=== PATIENT | male | born 1960 | race Two or more races ===

== ENCOUNTER 2016-10-17 10:13 | Inpatient (IN) | payer OTHER ==
[2016-10-17 11:23] VITALS: BMI 27.4
--- NOTE | 2016-10-17 12:32 | HP ---
CIWA Score - CIWA Score Nausea/Vomitin-No Nausea/No Vomiting Muscle Tremors: 4-Moderate,w/Arms Extend Anxiety: 4-Mod. Anxious/Guarded Agitation: 4-Moderately Restless Paroxysmal Sweats: 3 Orientation: 0-Oriented Tacttile Disturbances: 0-None Auditory Disturbances: 0-None Visual Disturbances: 0-None Headache: 1-Very Mild CIWA-Ar Total Score: 16 Admission ROS BHS - HPI Chief Complaint: I am here for detox and need help. Allergies/Adverse Reactions: Allergies Allergy/AdvReac Type Severity Reaction Status Date / Time penicillin G Allergy Severe Rash Verified 10/17/16 12:09 History of Present Illness: pt is a 56yr old male with a history of alcohol and cocaine dependence seeking detox for treatment. pt also understand [place]. Exam Limitations: No Limitations - Ebola screening Have you traveled outside of the country in the last 21 days: No Have you had contact with anyone from an Ebola affected area: No Have you been sick,other than usual withdrawal symptoms: No Do you have a fever: No - Review of Systems Constitutional: Chills, Diaphoresis, Loss of Appetite, Night Sweats, Changes in sleep, Unintentional Wgt. Loss EENT: reports: No Symptoms Reported Respiratory: reports: No Symptoms reported Cardiac: reports: No Symptoms Reported GI: reports: Constipated, Poor Appetite, Poor Fluid Intake : reports: Burning Musculoskeletal: reports: No Symptoms Reported Integumentary: reports: Flushing, Sweating Neuro: reports: Tingling, Tremors Endocrine: reports: Excessive Sweating, Flushing, Intolerance to Cold, Intolerance to Heat Hematology: reports: No Symptoms Reported Psychiatric: reports: Judgement Intact, Mood/Affect Appropiate, Orientated x3, Agitated, Anxious Other Systems: Reviewed and Negative Patient History - Patient Medical History Hx Anemia: No Hx Asthma: No Hx Chronic Obstructive Pulmonary Disease (COPD): No Hx Cancer: No Hx Cardiac Disorders: No Hx Congestive Heart Failure: No Hx Hypertension: No Hx Hypercholesterolemia: No Hx Pacemaker: No HX Cerebrovascular Accident: No Hx Seizures: No Hx Dementia: No Hx Diabetes: No Hx Gastrointestinal Disorders: No Hx Liver Disease: No Hx Genitourinary Disorders: No Hx Sexually Transmitted Disorders: No Hx Renal Disease (ESRD): No Hx Thyroid Disease: No Hx Human Immunodeficiency Virus (HIV): No Hx Hepatitis C: No (negative) Hx Depression: No Hx Suicide Attempt: No (denies any S/H today. ) Hx Bipolar Disorder: No Hx Schizophrenia: Yes - Patient Surgical History Past Surgical History: No Hx Neurologic Surgery: No Hx Cataract Extraction: No Hx Cardiac Surgery: No Hx Lung Surgery: No Hx Breast Surgery: No Hx Breast Biopsy: No Hx Abdominal Surgery: No Hx Appendectomy: No Hx Cholecystectomy: No Hx Genitourinary Surgery: No Hx Section: No Hx Orthopedic Surgery: No Anesthesia Reaction: No - PPD History Previous Implant?: Yes PPD to be Administered?: No - Reproductive History Patient is a Female of Child Bearing Age (11 -55 yrs old): No - Smoking Cessation Smoking history: Current every day smoker Have you smoked in the past 12 months: Yes Aproximately how many cigarettes per day: 3 Cigars Per Day: 0 Hx Chewing Tobacco Use: No Initiated information on smoking cessation: Yes 'Breaking Loose' booklet given: 10/17/16 - Substance & Tx. History Hx Alcohol Use: Yes Hx Substance Use: Yes Substance Use Type: Alcohol, Cocaine Hx Substance Use Treatment: Yes - Substances Abused Cocaine Route: Inhalation Frequency: 1-2 times per week Amount used: $40 Age of first use: 29 Date of Last Use: 10/16/16 Alcohol-beer/vodka Route: Oral Frequency: Daily Amount used: 2-6 pks./5-6 pts. Age of first use: 12 Date of Last Use: 10/17/16 Family Disease History - Family Disease History Family Disease History: Diabetes: Mother Admission Physical Exam S - Vital Signs Vital Signs: Vital Signs - 24 hr 10/17/16 11:20 Temperature 98.4 F Pulse Rate 76 Respiratory 20 Rate Blood Pressure 122/68 - Physical General Appearance: Yes: Appropriately Dressed, Moderate Distress, Tremorous, Irritable, Sweating, Anxious HEENTM: Yes: Hearing grossly Normal, Normal Voice, Rhinorrhea Respiratory: Yes: Lungs Clear, Normal Breath Sounds, No Respiratory Distress Neck: Yes: No masses,lesions,Nodules Breast: Yes: Within Normal Limits Cardiology: Yes: Regular Rhythm, Regular Rate, S1, S2 Abdominal: Yes: Normal Bowel Sounds, Non Tender, Soft Genitourinary: Yes: Within Normal Limits Back: Yes: Normal Inspection Musculoskeletal: Yes: full range of Motion, Back pain Extremities: Yes: Normal Capillary Refill, Normal Inspection, Non-Tender, Tremors Neurological: Yes: Fully Oriented, Alert, Normal Response Integumentary: Yes: Normal Color, Diaphoresis Lymphatic: Yes: Within Normal Limits - Diagnostic (1) Schizophrenia Current Visit: Yes Status: Acute (2) Alcohol dependence with uncomplicated withdrawal Current Visit: Yes Status: Chronic (3) Nicotine dependence Current Visit: Yes Status: Chronic (4) Cocaine dependence Current Visit: Yes Status: Chronic Cleared for Admission [facility] - Detox or Rehab [facility] Level of Care: Medically Managed Detox Regimen/Protocol: Librium [facility] Breath Alcohol Content Breath Alcohol Content: 0 Urine Drug Screen - Results Drug Screen Negative: No Urine Drug Screen Results: CAROL-Cocaine
[2016-10-17] MEDS ORDERED: MAG HYDROX/AL HYDROX/SIMETH 30 ML UNIT-DOSE CUP PO PRN (14:43)
[2016-10-17] MEDS ORDERED: MENTHOL/PHENOL 1 EACH UD MM PRN (14:43)
[2016-10-17] MEDS ORDERED: MAGNESIUM CITRATE 300 ML BOTTLE PO PRN (14:43)
[2016-10-17] MEDS ORDERED: P-EPHED 60MG/TRIPROLIDI 2.5MG TABLET PO PRN (14:43)
[2016-10-17] MEDS ORDERED: chlordiazePOXIDE HCL 25 MG CAPSULE PO PRN (14:43)
[2016-10-17] MEDS ORDERED: hydrOXYzine PAMOATE 50 MG CAPSULE (FP) PO PRN (14:43)
[2016-10-17] MEDS ORDERED: NICOTINE POLACRILEX 4 MG GUM BUC PRN (14:43)
[2016-10-17] MEDS ORDERED: IBUPROFEN 400 MG TABLET (FP) PO PRN (14:43)
[2016-10-17] MEDS ORDERED: LOPERAMIDE HCL 2 MG CAPSULE PO PRN (14:43)
[2016-10-17] MEDS ORDERED: ACETAMINOPHEN 325 MG TABLET (FP) PO PRN (14:43)
[2016-10-17] MEDS ORDERED: guaiFENesin/D-METHORPHAN HB 10 ML UNIT-DOSE CUPS PO PRN (14:43)
[2016-10-17] MEDS ORDERED: MAGNESIUM HYDROX 2400MG/30ML ORAL SUSPENSION 30 ML CUP PO PRN (14:43)
[2016-10-17] MEDS ORDERED: chlordiazePOXIDE HCL 25 MG CAPSULE PO ONE (15:05)
[2016-10-17] MEDS: chlordiazePOXIDE HCL 25 MG CAPSULE PO SCH ×2 (17:24→22:08)
[2016-10-17] MEDS: THIAMINE HCL 100 MG TABLET (FP) PO SCH (22:08)
[2016-10-17] MEDS: diphenhydrAMINE HCL 50 MG CAPSULE PO PRN (22:09)
--- NOTE | 2016-10-18 00:28 | EKG ---
Test Reason : Blood Pressure : / mmHG Vent. Rate : 068 BPM Atrial Rate : 068 BPM P-R Int : 138 ms QRS Dur : 076 ms QT Int : 426 ms P-R-T Axes : 009 099 048 degrees QTc Int : 452 ms NORMAL SINUS RHYTHM BORDERLINE ECG NO PREVIOUS ECGS AVAILABLE Confirmed by ZBIGNIEW WESTBROOK MD ([id number]) on 10/18/2016 12:27:47 AM Referred By: Confirmed By:ZBIGNIEW WESTBROOK MD
[2016-10-18] MEDS: chlordiazePOXIDE HCL 25 MG CAPSULE PO SCH ×4 (06:01→22:07)
--- NOTE | 2016-10-18 09:01 | PN ---
S CIWA - CIWA Score Nausea/Vomitin Muscle Tremors: 4-Moderate,w/Arms Extend Anxiety: 4-Mod. Anxious/Guarded Agitation: 3 Paroxysmal Sweats: 3 Orientation: 0-Oriented Tacttile Disturbances: 1-Very Mild Itch/Numbness Auditory Disturbances: 0-None Visual Disturbances: 0-None Headache: 0-None Present CIWA-Ar Total Score: 17 BHS Progress Note (SOAP) Subjective: NAUSEA,SWEATING,ANXIETY,TREMORS,INTERRUPTED SLEEP,RESTLESS.C/O SEVERE DYSPEPSIA. Objective: 10/18/16 09:00 Vital Signs - 8 hr 10/18/16 06:32 Temperature 98.5 F Pulse Rate 77 Respiratory 18 Rate Blood Pressure 134/72 Assessment: 10/18/16 09:01 WITHDRAWAL SX. Plan: CONTINUE DETOX
[2016-10-18] MEDS: RANITIDINE HCL 150 MG TABLET (FP) PO SCH ×2 (09:48→22:07)
[2016-10-18] MEDS: PRENATAL VITAMINS W/ FOLIC ACID TABLET (FP) PO SCH (10:09)
[2016-10-18] MEDS: NICOTINE 21 MG/24 HOURS TOPICAL PATCH TD SCH (10:09)
[2016-10-18 10:18] LABS: MCH 28.5 pg (25.7-33.7); MCHC 32.3 g/dl (32.0-35.9); MEAN CELL VOLUME 88.2 fl (80-96); MEAN PLT VOLUME 11.5 fl (7.5-11.1); PLATELET COUNT 160 K/MM3 (134-434); RDW 14.6 % (11.9-15.9); WHITE BLOOD COUNT 6.7 K/mm3 (4.0-10.0)
[2016-10-18 10:44] LABS: ALBUMIN 4.4 g/dl (3.4-5.0); ALK PHOS 79 U/L (45-117); ANION GAP 8 (8-16); BILIRUBIN,TOTAL 1.1 mg/dL (0.2-1.0); CALCIUM 9.3 mg/dL (8.5-10.1); CO2 32 mmol/L (21-32); GLUCOSE,RANDOM 95 mg/dL (74-106); SGOT/AST 29 U/L (15-37); SGPT/ALT 29 U/L (12-78); TOT PROT 8.2 g/dl (6.4-8.2)
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
[2016-10-18 12:52] LABS: HIV 1 & 2 AB NEGATIVE; HIV 1 AGp24 NEGATIVE
[2016-10-18 15:59] LABS: URINE APPEARANCE CLEAR; URINE BILIRUBIN NEGATIVE (NEGATIVE); URINE BLOOD NEGATIVE (NEGATIVE); URINE COLOR YELLOW; URINE GLUCOSE (UA) NEGATIVE (NEGATIVE); URINE KETONE NEGATIVE (NEGATIVE); URINE LEUK ESTERASE NEGATIVE (NEGATIVE); URINE NITRITE NEGATIVE (NEGATIVE); URINE PROTEIN NEGATIVE (NEGATIVE); URINE UROBILINOGEN 2.0 E.U/dl E.U./dl (0.2-1.0)
[2016-10-18] MEDS: QUEtiapine FUMARATE 200 MG TABLET PO SCH (22:07)
[2016-10-18] MEDS: THIAMINE HCL 100 MG TABLET (FP) PO SCH (22:07)
[2016-10-18] MEDS: diphenhydrAMINE HCL 50 MG CAPSULE PO PRN (22:09)
[2016-10-19] MEDS: chlordiazePOXIDE HCL 25 MG CAPSULE PO SCH ×2 (05:51→10:07)
[2016-10-19] MEDS: PRENATAL VITAMINS W/ FOLIC ACID TABLET (FP) PO SCH (10:07)
[2016-10-19] MEDS: RANITIDINE HCL 150 MG TABLET (FP) PO SCH ×2 (10:07→22:06)
[2016-10-19] MEDS: NICOTINE 21 MG/24 HOURS TOPICAL PATCH TD SCH (10:07)
[2016-10-19] MEDS: CITALOPRAM HYDROBROMIDE 20 MG TABLET (FP) PO SCH (10:08)
[2016-10-19] MEDS: chlordiazePOXIDE 5 MG CAPSULE PO SCH ×2 (17:30→22:06)
--- NOTE | 2016-10-19 17:30 | PN ---
S CIWA - CIWA Score Nausea/Vomitin-No Nausea/No Vomiting Muscle Tremors: 3 Anxiety: 4-Mod. Anxious/Guarded Agitation: 3 Paroxysmal Sweats: 3 Orientation: 0-Oriented Tacttile Disturbances: 1-Very Mild Itch/Numbness Auditory Disturbances: 0-None Visual Disturbances: 0-None Headache: 0-None Present CIWA-Ar Total Score: 14 BHS Progress Note (SOAP) Subjective: ANXIETY,TREMORS,SWEATING,INTERRUPTED SLEEP,RESTLESS. Objective: 10/19/16 17:29 Vital Signs - 8 hr 10/19/16 10/19/16 10/19/16 09:31 13:13 17:23 Temperature 95.1 F L 96.1 F L 96.0 F L Pulse Rate 81 82 85 Respiratory 18 18 18 Rate Blood Pressure 105/69 117/65 101/65 Laboratory Tests 10/17/16 10/18/16 10/18/16 12:30 06:00 06:00 WBC 6.7 D RBC 4.86 D Hgb 13.8 D Hct 42.8 D MCV 88.2 MCHC 32.3 RDW 14.6 Plt Count 160 MPV 11.5 H Sodium 138 Potassium 4.2 Chloride 98 Carbon Dioxide 32 Anion Gap 8 BUN 15 Creatinine 1.0 D Creat Clearance w eGFR > 60 Random Glucose 95 D Calcium 9.3 Total Bilirubin 1.1 H D AST 29 D ALT 29 D Alkaline Phosphatase 79 D Total Protein 8.2 D Albumin 4.4 D Urine Color Urine Appearance Urine pH Ur Specific [place] Urine Protein Urine Glucose (UA) Urine Ketones Urine Blood Urine Nitrite Urine Bilirubin Urine Urobilinogen Ur Leukocyte Esterase RPR Titer HIV 1&2 Antibody Screen Negative HIV P24 Antigen Negative 10/18/16 10/18/16 06:00 11:10 WBC RBC Hgb Hct MCV MCHC RDW Plt Count MPV Sodium Potassium Chloride Carbon Dioxide Anion Gap BUN Creatinine Creat Clearance w eGFR Random Glucose Calcium Total Bilirubin AST ALT Alkaline Phosphatase Total Protein Albumin Urine Color Yellow Urine Appearance Clear Urine pH 6.0 Ur Specific [place] 1.024 Urine Protein Negative Urine Glucose (UA) Negative Urine Ketones Negative Urine Blood Negative Urine Nitrite Negative Urine Bilirubin Negative Urine Urobilinogen 2.0 e.u/dl Ur Leukocyte Esterase Negative RPR Titer Nonreactive HIV 1&2 Antibody Screen HIV P24 Antigen LABS NOTED Assessment: 10/19/16 17:29 WITHDRAWAL SX. Plan: CONTINUE DETOX
[2016-10-19] MEDS: QUEtiapine FUMARATE 200 MG TABLET PO SCH (22:06)
[2016-10-19] MEDS: THIAMINE HCL 100 MG TABLET (FP) PO SCH (22:06)
[2016-10-20] MEDS: chlordiazePOXIDE 5 MG CAPSULE PO SCH ×2 (05:37→10:12)
[2016-10-20] MEDS: RANITIDINE HCL 150 MG TABLET (FP) PO SCH ×2 (10:12→22:07)
[2016-10-20] MEDS: PRENATAL VITAMINS W/ FOLIC ACID TABLET (FP) PO SCH (10:12)
[2016-10-20] MEDS: CITALOPRAM HYDROBROMIDE 20 MG TABLET (FP) PO SCH (10:12)
[2016-10-20] MEDS: NICOTINE 21 MG/24 HOURS TOPICAL PATCH TD SCH (10:13)
--- NOTE | 2016-10-20 11:44 | PN ---
BHS Progress Note (SOAP) Subjective: SWEATING,INTERRUPTED SLEEP,RESTLESS. Objective: 10/20/16 11:43 Vital Signs - 8 hr 10/20/16 10/20/16 06:55 10:04 Temperature 97.8 F 95.8 F L Pulse Rate 76 84 Respiratory 18 16 Rate Blood Pressure 135/65 121/65 Laboratory Last Values WBC 6.7 K/mm3 (4.0-10.0) D 10/18/16 06:00 RBC 4.86 M/mm3 (4.00-5.60) D 10/18/16 06:00 Hgb 13.8 GM/dL (11.7-16.9) D 10/18/16 06:00 Hct 42.8 % (35.4-49) D 10/18/16 06:00 MCV 88.2 fl (80-96) 10/18/16 06:00 MCHC 32.3 g/dl (32.0-35.9) 10/18/16 06:00 RDW 14.6 % (11.9-15.9) 10/18/16 06:00 Plt Count 160 K/MM3 (134-434) 10/18/16 06:00 MPV 11.5 fl (7.5-11.1) H 10/18/16 06:00 Sodium 138 mmol/L (136-145) 10/18/16 06:00 Potassium 4.2 mmol/L (3.5-5.1) 10/18/16 06:00 Chloride 98 mmol/L (98-107) 10/18/16 06:00 Carbon Dioxide 32 mmol/L (21-32) 10/18/16 06:00 Anion Gap 8 (8-16) 10/18/16 06:00 BUN 15 mg/dL (7-18) 10/18/16 06:00 Creatinine 1.0 mg/dL (0.7-1.3) D 10/18/16 06:00 Creat Clearance w eGFR > 60 (>60) 10/18/16 06:00 Random Glucose 95 mg/dL (74-106) D 10/18/16 06:00 Calcium 9.3 mg/dL (8.5-10.1) 10/18/16 06:00 Total Bilirubin 1.1 mg/dL (0.2-1.0) H D 10/18/16 06:00 AST 29 U/L (15-37) D 10/18/16 06:00 ALT 29 U/L (12-78) D 10/18/16 06:00 Alkaline Phosphatase 79 U/L (45-117) D 10/18/16 06:00 Total Protein 8.2 g/dl (6.4-8.2) D 10/18/16 06:00 Albumin 4.4 g/dl (3.4-5.0) D 10/18/16 06:00 Urine Color Yellow 10/18/16 11:10 Urine Appearance Clear 10/18/16 11:10 Urine pH 6.0 (5.0-8.0) 10/18/16 11:10 Ur Specific [place] 1.024 (1.001-1.035) 10/18/16 11:10 Urine Protein Negative (NEGATIVE) 10/18/16 11:10 Urine Glucose (UA) Negative (NEGATIVE) 10/18/16 11:10 Urine Ketones Negative (NEGATIVE) 10/18/16 11:10 Urine Blood Negative (NEGATIVE) 10/18/16 11:10 Urine Nitrite Negative (NEGATIVE) 10/18/16 11:10 Urine Bilirubin Negative (NEGATIVE) 10/18/16 11:10 Urine Urobilinogen 2.0 e.u/dl E.U./dl (0.2-1.0) 10/18/16 11:10 Ur Leukocyte Esterase Negative (NEGATIVE) 10/18/16 11:10 RPR Titer Nonreactive (NONREACTIVE) 10/18/16 06:00 HIV 1&2 Antibody Screen Negative 10/17/16 12:30 HIV P24 Antigen Negative 10/17/16 12:30 LABS NOTED Assessment: 10/20/16 11:43 WITHDRAWAL SX. Plan: CONTINUE DETOX
[2016-10-20] MEDS: chlordiazePOXIDE HCL 10 MG CAPSULE PO SCH ×2 (17:53→22:07)
[2016-10-20] MEDS: THIAMINE HCL 100 MG TABLET (FP) PO SCH (22:07)
[2016-10-20] MEDS: QUEtiapine FUMARATE 200 MG TABLET PO SCH (22:07)
[2016-10-21] MEDS: chlordiazePOXIDE HCL 10 MG CAPSULE PO SCH (05:47)
[2016-10-21 06:21] VITALS: BP 109/63; PULSE 75; TEMP 97.5
--- NOTE | 2016-10-21 11:46 | DS ---
[facility] Detox Discharge Summary Admission Date: 10/17/16 Discharge Date: 10/21/16 - History Present History: Alcohol Dependence, Cocaine Dependence Pertinent Past History: schizophrenia - Physical Exam Results Vital Signs: Vital Signs Temperature 97.5 F L 10/21/16 06:21 Pulse Rate 75 10/21/16 06:21 Respiratory Rate 16 10/21/16 06:21 Blood Pressure 109/63 10/21/16 06:21 O2 Sat by Pulse Oximetry (%) Pertinent Admission Physical Exam Findings: Withdrawal sx. Laboratory Tests 10/17/16 10/18/16 10/18/16 12:30 06:00 06:00 WBC 6.7 D RBC 4.86 D Hgb 13.8 D Hct 42.8 D MCV 88.2 MCHC 32.3 RDW 14.6 Plt Count 160 MPV 11.5 H Sodium 138 Potassium 4.2 Chloride 98 Carbon Dioxide 32 Anion Gap 8 BUN 15 Creatinine 1.0 D Creat Clearance w eGFR > 60 Random Glucose 95 D Calcium 9.3 Total Bilirubin 1.1 H D AST 29 D ALT 29 D Alkaline Phosphatase 79 D Total Protein 8.2 D Albumin 4.4 D Urine Color Urine Appearance Urine pH Ur Specific [place] Urine Protein Urine Glucose (UA) Urine Ketones Urine Blood Urine Nitrite Urine Bilirubin Urine Urobilinogen Ur Leukocyte Esterase RPR Titer HIV 1&2 Antibody Screen Negative HIV P24 Antigen Negative 10/18/16 10/18/16 06:00 11:10 WBC RBC Hgb Hct MCV MCHC RDW Plt Count MPV Sodium Potassium Chloride Carbon Dioxide Anion Gap BUN Creatinine Creat Clearance w eGFR Random Glucose Calcium Total Bilirubin AST ALT Alkaline Phosphatase Total Protein Albumin Urine Color Yellow Urine Appearance Clear Urine pH 6.0 Ur Specific [place] 1.024 Urine Protein Negative Urine Glucose (UA) Negative Urine Ketones Negative Urine Blood Negative Urine Nitrite Negative Urine Bilirubin Negative Urine Urobilinogen 2.0 e.u/dl Ur Leukocyte Esterase Negative RPR Titer Nonreactive HIV 1&2 Antibody Screen HIV P24 Antigen labs noted - Treatment Hospital Course: Detox Protocol Followed, Detoxed Safely, Responded well, Discharged Condition Good, Rehab Referral Accepted - Medication Discharge Medications: Ambulatory Orders Zolpidem Tartrate [Ambien] 10 mg PO HS 03/15/12 Citalopram Hydrobromide [Celexa -] 20 mg PO DAILY 10/17/16 Quetiapine Fumarate [Seroquel -] 400 mg PO BID 10/17/16 Citalopram Hydrobromide [Celexa -] 20 mg PO DAILY #30 tablet 10/19/16 Quetiapine Fumarate [Seroquel] 300 mg PO HS #30 tablet 10/19/16 - Diagnosis (1) Alcohol dependence with uncomplicated withdrawal Status: Acute (2) Cocaine dependence Status: Acute (3) Nicotine dependence Status: Acute Qualifiers: Nicotine product type: cigarettes Substance use status: uncomplicated Qualified Code(s): F17.210 - Nicotine dependence, cigarettes, uncomplicated (4) Schizophrenia Status: Chronic - AMA Did Patient Leave Against Medical Advice: No
== END 2016-10-21 08:35 | disposition home or self-care (01) | DRG 897 ==
LOC: YASAS 10:13 → Y3N 13:06
PROVIDERS: ADMIT Internal Medicine; ATTEND Internal Medicine
PROC: HZ2ZZZZ Detoxification Services for Substance Abuse Treatment (ICD-10-PCS; principal; 2016-10-21)
DX: F10.230 Alcohol dependence with withdrawal, uncomplicated (principal); F14.20 Cocaine dependence, uncomplicated; F20.0 Paranoid schizophrenia; F17.210 Nicotine dependence, cigarettes, uncomplicated; Z59.0 Homelessness
CPT/HCPCS: 36415; 71010-TC; 80053; 81003; 85027; 86593; 87389; 93005; 93010

== ENCOUNTER 2018-01-14 10:01 | Inpatient (IN) | payer OTHER ==
[2018-01-14 10:46] VITALS: BMI 29.9
--- NOTE | 2018-01-14 13:26 | HP ---
CIWA Score - CIWA Score Nausea/Vomitin-No Nausea/No Vomiting Muscle Tremors: 3 Anxiety: 3 Agitation: 3 Paroxysmal Sweats: 1-Minimal Palms Moist Orientation: 0-Oriented Tacttile Disturbances: 2-Mild Itch/Numbness/Burn Auditory Disturbances: 0-None Visual Disturbances: 0-None Headache: 0-None Present CIWA-Ar Total Score: 12 Admission ROS BHS - HPI Chief Complaint: I want detox Allergies/Adverse Reactions: Allergies Allergy/AdvReac Type Severity Reaction Status Date / Time penicillin G Allergy Severe Rash Verified 01/14/18 10:41 History of Present Illness: 57 yr old male requesting alcohol detox. Pt was last here in Oct last year. Was at [facility] yesterday for Alcohol intoxication. Denies any medical hx; Hx of Schizophrenia Endorses prior SI by attempting to jump over a bridge but denies current SI/HI Exam Limitations: Language Barrier (Speaks a little [place]) - Ebola screening Have you traveled outside of the country in the last 21 days: No (N) Have you had contact with anyone from an Ebola affected area: No Have you been sick,other than usual withdrawal symptoms: No Do you have a fever: No - Review of Systems Constitutional: Loss of Appetite EENT: reports: Other (lips dry) Respiratory: reports: No Symptoms reported Cardiac: reports: No Symptoms Reported GI: reports: No Symptoms Reported, Poor Fluid Intake : reports: No Symptoms Reported Musculoskeletal: reports: No Symptoms Reported Integumentary: reports: No Symptoms Reported Neuro: reports: Headache (slight headache) Endocrine: reports: No Symptoms Reported Hematology: reports: No Symptoms Reported Psychiatric: reports: Judgement Intact, other Other Systems: Reviewed and Negative Patient History - Patient Medical History Hx Anemia: No Hx Asthma: No Hx Chronic Obstructive Pulmonary Disease (COPD): No Hx Cancer: No Hx Cardiac Disorders: No Hx Congestive Heart Failure: No Hx Hypertension: No Hx Hypercholesterolemia: No Hx Pacemaker: No HX Cerebrovascular Accident: No Hx Seizures: No Hx Dementia: No Hx Diabetes: No Hx Gastrointestinal Disorders: No Hx Liver Disease: No Hx Genitourinary Disorders: No Hx Sexually Transmitted Disorders: No Hx Renal Disease (ESRD): No Hx Thyroid Disease: No Hx Human Immunodeficiency Virus (HIV): No (Negative, last tested 3 years ago) Hx Hepatitis C: No (negative) Hx Depression: Yes Hx Suicide Attempt: Yes (3 years ago, denies any S/H today. ) Hx Bipolar Disorder: No Hx Schizophrenia: Yes (Not on meds) - Patient Surgical History Past Surgical History: No Hx Neurologic Surgery: No Hx Cataract Extraction: No Hx Cardiac Surgery: No Hx Lung Surgery: No Hx Breast Surgery: No Hx Breast Biopsy: No Hx Abdominal Surgery: No Hx Appendectomy: No Hx Cholecystectomy: No Hx Genitourinary Surgery: No Hx Section: No Hx Orthopedic Surgery: No Anesthesia Reaction: No - PPD History Previous Implant?: Yes Documented Results: Positive w/proof (chest x ray 10/2016) PPD to be Administered?: No - Reproductive History Patient is a Female of Child Bearing Age (11 -55 yrs old): No - Smoking Cessation Smoking history: Current every day smoker Have you smoked in the past 12 months: Yes Aproximately how many cigarettes per day: 3 Cigars Per Day: 0 Hx Chewing Tobacco Use: No Initiated information on smoking cessation: Yes 'Breaking Loose' booklet given: 01/14/18 - Substance & Tx. History Hx Alcohol Use: Yes Hx Substance Use: Yes Substance Use Type: Cocaine Hx Substance Use Treatment: Yes - Substances Abused Alcohol Route: Oral Frequency: Daily Amount used: beer- 2 six pack, liquor - 1 pint Age of first use: 23 Date of Last Use: 01/13/18 Cocaine Route: Inhalation Frequency: Daily Amount used: 20 bags Age of first use: 23 Date of Last Use: 01/13/18 Family Disease History - Family Disease History Family Disease History: Diabetes: Mother (HTN), Other: Father (Prostate hx) Admission Physical Exam S - Vital Signs Vital Signs: Vital Signs - 24 hr 01/14/18 01/14/18 10:19 10:44 Temperature 97.3 F L 97.3 F L Pulse Rate 83 83 Respiratory 20 20 Rate Blood Pressure 119/69 119/69 - Physical General Appearance: Yes: Mild Distress HEENTM: Yes: Within Normal Limits Respiratory: Yes: Lungs Clear, No Respiratory Distress Neck: Yes: No masses,lesions,Nodules, Trachea in good position Breast: Yes: Breast Exam Deferred Cardiology: Yes: Regular Rate Abdominal: Yes: Normal Bowel Sounds, Non Tender Genitourinary: Yes: Within Normal Limits Back: Yes: Normal Inspection Musculoskeletal: Yes: full range of Motion, Gait Steady Extremities: Yes: Normal Capillary Refill, Normal Inspection, Normal Range of Motion Neurological: Yes: Fully Oriented, Alert, Motor Strength 5/5 Integumentary: Yes: Normal Color - Diagnostic (1) Alcohol dependence with uncomplicated withdrawal Current Visit: Yes Status: Acute (2) Cocaine dependence Current Visit: Yes Status: Chronic (3) Nicotine dependence Current Visit: Yes Status: Chronic Qualifiers: Nicotine product type: cigarettes Substance use status: uncomplicated Qualified Code(s): F17.210 - Nicotine dependence, cigarettes, uncomplicated (4) Schizophrenia Current Visit: No Status: Chronic (5) Dehydration Current Visit: Yes Status: Acute Cleared for Admission [facility] - Detox or Rehab [facility] Level of Care: Medically Managed Detox Regimen/Protocol: Librium [facility] Breath Alcohol Content Breath Alcohol Content: 0 Urine Drug Screen - Results Drug Screen Negative: No Urine Drug Screen Results: CAROL-Cocaine, BZO-Benzodiazepines
[2018-01-14] MEDS ORDERED: MENTHOL/PHENOL 1 EACH UD MM PRN (13:53)
[2018-01-14] MEDS ORDERED: ACETAMINOPHEN 325 MG TABLET (FP) PO PRN (13:53)
[2018-01-14] MEDS ORDERED: hydrOXYzine PAMOATE 50 MG CAPSULE (FP) PO PRN (13:53)
[2018-01-14] MEDS ORDERED: IBUPROFEN 400 MG TABLET (FP) PO PRN (13:53)
[2018-01-14] MEDS ORDERED: P-EPHED 60MG/TRIPROLIDI 2.5MG TABLET PO PRN (13:53)
[2018-01-14] MEDS ORDERED: guaiFENesin/D-METHORPHAN HB 10 ML UNIT-DOSE CUPS PO PRN (13:53)
[2018-01-14] MEDS ORDERED: MAG HYDROX/AL HYDROX/SIMETH 30 ML UNIT-DOSE CUP PO PRN (13:53)
[2018-01-14] MEDS ORDERED: NICOTINE POLACRILEX 2 MG GUM BC PRN (13:53)
[2018-01-14] MEDS ORDERED: MAGNESIUM HYDROX 2400MG/30ML ORAL SUSPENSION 30 ML CUP PO PRN (13:53)
[2018-01-14] MEDS ORDERED: LOPERAMIDE HCL 2 MG CAPSULE PO PRN (13:53)
[2018-01-14] MEDS ORDERED: MAGNESIUM CITRATE 300 ML BOTTLE PO PRN (13:53)
[2018-01-14] MEDS ORDERED: chlordiazePOXIDE HCL 25 MG CAPSULE PO PRN (13:53)
[2018-01-14] MEDS: NICOTINE 14 MG/24 HOURS TOPICAL PATCH TD SCH (14:39)
--- NOTE | 2018-01-14 16:12 | EKG ---
Test Reason : Blood Pressure : / mmHG Vent. Rate : 068 BPM Atrial Rate : 068 BPM P-R Int : 152 ms QRS Dur : 076 ms QT Int : 438 ms P-R-T Axes : 011 077 033 degrees QTc Int : 465 ms NORMAL SINUS RHYTHM NORMAL ECG WHEN COMPARED WITH ECG OF 17-OCT-2016 14:51, NO SIGNIFICANT CHANGE WAS FOUND Confirmed by MD Chapman Daniel ([id number]) on 01/14/2018 4:11:55 PM Referred By: Confirmed By:Guy Chapman MD
[2018-01-14] MEDS: chlordiazePOXIDE HCL 25 MG CAPSULE PO SCH ×2 (17:24→22:29)
[2018-01-14 21:10] LABS: URINE APPEARANCE SLCLOUDY; URINE BILIRUBIN NEGATIVE (<2.0 mg/dL); URINE COLOR AMBER; URINE GLUCOSE (UA) NEGATIVE (NEGATIVE); URINE KETONE 1+ (NEGATIVE); URINE LEUK ESTERASE TRACE (NEGATIVE); URINE NITRITE NEGATIVE (NEGATIVE)
[2018-01-14 21:11] LABS: URINE PROTEIN 1+ (NEGATIVE)
[2018-01-14 21:17] LABS: EPI CELLS RARE /HPF (FEW); URINE BACTERIA RARE /hpf (NONE SEEN); URINE HYALINE CAST 3 /lpf; URINE MUCUS MANY
[2018-01-14] MEDS ORDERED: MELATONIN 5 MG TABLETS PO PRN (22:00)
[2018-01-14] MEDS: THIAMINE HCL 100 MG TABLET (FP) PO SCH (22:29)
[2018-01-15] MEDS: chlordiazePOXIDE HCL 25 MG CAPSULE PO SCH ×4 (05:19→22:08)
[2018-01-15 09:41] LABS: HEMOGLOBIN 12.1 GM/dL (11.7-16.9); MCH 29.6 pg (25.7-33.7); MCHC 33.7 g/dl (32.0-35.9); MEAN CELL VOLUME 87.9 fl (80-96); MEAN PLT VOLUME 10.7 fl (7.5-11.1); PLATELET COUNT 173 K/MM3 (134-434); RDW 14.8 % (11.9-15.9); WHITE BLOOD COUNT 4.4 K/mm3 (4.0-10.0)
[2018-01-15 09:53] LABS: CHLORIDE 102 mmol/L (98-107); POTASSIUM 3.8 mmol/L (3.5-5.1); SODIUM 138 mmol/L (136-145)
[2018-01-15 10:04] LABS: ALBUMIN 3.5 g/dl (3.4-5.0); ALK PHOS 99 U/L (45-117); ANION GAP 3 (8-16); BILIRUBIN,TOTAL 1.2 mg/dL (0.2-1.0); BLOOD UREA NITROGEN 11 mg/dL (7-18); CALCIUM 8.4 mg/dL (8.5-10.1); CO2 33 mmol/L (21-32); CREATININE 0.9 mg/dL (0.7-1.3); GLUCOSE,RANDOM 95 mg/dL (74-106); SGOT/AST 38 U/L (15-37); SGPT/ALT 49 U/L (12-78)
[2018-01-15] MEDS: PRENATAL VITAMINS W/ FOLIC ACID TABLET (FP) PO SCH (10:16)
[2018-01-15] MEDS: NICOTINE 14 MG/24 HOURS TOPICAL PATCH TD SCH (10:17)
--- NOTE | 2018-01-15 15:23 | PN ---
S CIWA - CIWA Score Nausea/Vomitin Muscle Tremors: 3 Anxiety: 2 Agitation: 2 Paroxysmal Sweats: 2 Orientation: 0-Oriented Tacttile Disturbances: 0-None Auditory Disturbances: 0-None Visual Disturbances: 0-None Headache: 0-None Present CIWA-Ar Total Score: 12 S Progress Note (SOAP) Subjective: sleep disturbance shakes sweats Objective: 01/15/18 15:18 A & O x 3 Vital Signs Temperature 98.9 F 01/15/18 13:18 Pulse Rate 75 01/15/18 13:18 Respiratory Rate 18 01/15/18 13:18 Blood Pressure 96/54 01/15/18 13:18 O2 Sat by Pulse Oximetry (%) Laboratory Last Values WBC 4.4 K/mm3 (4.0-10.0) D 01/15/18 07:00 RBC 4.10 M/mm3 (4.00-5.60) 01/15/18 07:00 Hgb 12.1 GM/dL (11.7-16.9) D 01/15/18 07:00 Hct 36.0 % (35.4-49) D 01/15/18 07:00 MCV 87.9 fl (80-96) 01/15/18 07:00 MCH 29.6 pg (25.7-33.7) 01/15/18 07:00 MCHC 33.7 g/dl (32.0-35.9) 01/15/18 07:00 RDW 14.8 % (11.9-15.9) 01/15/18 07:00 Plt Count 173 K/MM3 (134-434) 01/15/18 07:00 MPV 10.7 fl (7.5-11.1) 01/15/18 07:00 Sodium 138 mmol/L (136-145) 01/15/18 07:00 Potassium 3.8 mmol/L (3.5-5.1) 01/15/18 07:00 Chloride 102 mmol/L (98-107) 01/15/18 07:00 Carbon Dioxide 33 mmol/L (21-32) H 01/15/18 07:00 Anion Gap 3 (8-16) L 01/15/18 07:00 BUN 11 mg/dL (7-18) D 01/15/18 07:00 Creatinine 0.9 mg/dL (0.7-1.3) 01/15/18 07:00 Creat Clearance w eGFR > 60 (>60) 01/15/18 07:00 Random Glucose 95 mg/dL (74-106) 01/15/18 07:00 Calcium 8.4 mg/dL (8.5-10.1) L 01/15/18 07:00 Total Bilirubin 1.2 mg/dL (0.2-1.0) H 01/15/18 07:00 AST 38 U/L (15-37) H D 01/15/18 07:00 ALT 49 U/L (12-78) D 01/15/18 07:00 Alkaline Phosphatase 99 U/L (45-117) D 01/15/18 07:00 Total Protein 7.0 g/dl (6.4-8.2) 01/15/18 07:00 Albumin 3.5 g/dl (3.4-5.0) D 01/15/18 07:00 Urine Color Lary 01/14/18 18:38 Urine Appearance Slcloudy 01/14/18 18:38 Urine pH 6.0 (5.0-8.0) 01/14/18 18:38 Ur Specific [place] 1.026 (1.001-1.035) 01/14/18 18:38 Urine Protein 1+ (NEGATIVE) H 01/14/18 18:38 Urine Glucose (UA) Negative (NEGATIVE) 01/14/18 18:38 Urine Ketones 1+ (NEGATIVE) H 01/14/18 18:38 Urine Blood Negative (NEGATIVE) 01/14/18 18:38 Urine Nitrite Negative (NEGATIVE) 01/14/18 18:38 Urine Bilirubin Negative (<2.0 mg/dL) 01/14/18 18:38 Urine Urobilinogen 2.0 mg/dL (0.2-1.0) 01/14/18 18:38 Ur Leukocyte Esterase Trace (NEGATIVE) 01/14/18 18:38 Urine WBC (Auto) 7 /hpf (3-5) 01/14/18 18:38 Urine RBC (Auto) 1 /hpf (0-3) 01/14/18 18:38 Ur Epithelial Cells Rare /HPF (FEW) 01/14/18 18:38 Urine Bacteria Rare /hpf (NONE SEEN) 01/14/18 18:38 Hyaline Casts 3 /lpf 01/14/18 18:38 Urine Mucus Many 01/14/18 18:38 RPR Titer Nonreactive (NONREACTIVE) 01/15/18 07:00 HIV 1&2 Antibody Screen Negative 01/15/18 07:00 HIV P24 Antigen Negative 01/15/18 07:00 Labs noted, Lary urine, cloudy Assessment: 01/15/18 15:23 Withdrawal assessment Plan: Continue detox Increase hydration Repeat UA
--- NOTE | 2018-01-15 17:26 | CONSULT ---
[facility] Psychiatric Consult - Data Date of interview: 01/15/18 Admission source: [facility] Identifying data: Another admission to [facility] for this 57 y/o male seeking detox treatment on for alcohol and cocaine dependence.Patient is single,a father of two,homeless,unemployed and supported on SSD. Substance Abuse History: Confirmed by patient in this session.Details in current [facility] report : Smoking history: Current every day smoker. Have you smoked in the past 12 months: Yes. Aproximately how many cigarettes per day: 3. Cigars Per Day: 0. Hx Chewing Tobacco Use: No. Initiated information on smoking cessation: Yes. 'Breaking Loose' booklet given: 01/14/18. - Substance & Tx. History. Hx Alcohol Use: Yes. Hx Substance Use: Yes. Substance Use Type : Cocaine. Hx Substance Use Treatment: Yes. - Substances Abused. Alcohol. Route: Oral. Frequency: Daily. Amount used: beer- 2 six pack, liquor - 1 pint. Age of first use: 23. Date of Last Use: 01/13/18. Cocaine. Route: Inhalation. Frequency: Daily. Amount used: 20 bags. Age of first use: 23. Date of Last Use: 01/13/18 Medical History: No reported medical problems. Psychiatric History: History of 5-7 psychiatric hospitalizations ([facility] and [facility]).Diagnosed with Schizophrenia.Patient does not recall the name of his outpatient program.Known to [facility].Mr Nicolas states that he is currently on a combination of celexa 20 mg /day + seroquel 400 mg am/hs + ambien 10 mg/hs + klonopin (dose unknown).Last medication intake : not known.Mr Jara denies history of suicide attempts. Physical/Sexual Abuse/Trauma History: Patient denies. Additional Comment: Urine Drug Screen Results: CAROL-Cocaine, BZO- Benzodiazepines.Noted. Mental Status Exam - Mental Status Exam Alert and Oriented to: Time, Place, Person Cognitive Function: Grossly Intact Patient Appearance: Unkempt, Disheveled Mood: Nervous, Withdrawn Affect: Mood Congruent Patient Behavior: Fatigued, Appropriate, Cooperative Speech Pattern: Clear (in bulgarian) Voice Loudness: Normal Thought Process: Intact, Goal Oriented Thought Disorder: Not Present Hallucinations: Denies Suicidal Ideation: Denies Homicidal Ideation: Denies Insight/Judgement: Poor Sleep: Poorly, Difficulty falling asleep Appetite: Good Muscle strength/Tone: Normal Gait/Station: Normal Psychiatric Findings - Problem List ([place] 1, 2,3) (1) Alcohol dependence with uncomplicated withdrawal Current Visit: Yes Status: Acute (2) Cocaine dependence Current Visit: Yes Status: Acute (3) Nicotine dependence Current Visit: Yes Status: Acute Qualifiers: Nicotine product type: cigarettes Substance use status: uncomplicated Qualified Code(s): F17.210 - Nicotine dependence, cigarettes, uncomplicated (4) Schizophrenia Current Visit: Yes Status: Chronic (5) Insomnia Current Visit: Yes Status: Acute - Initial Treatment Plan Initial Treatment Plan: Psychoeducation.Sleep hygiene.Detoxification in progress.Medications : seroquel 200 mg po hs + celexa 10 mg po daily.Ambien withdrawn.Side effects/benefits of these drugs are discused with the patient.Mr Nicolas agrees to this careplan.Observation.
[2018-01-15] MEDS: THIAMINE HCL 100 MG TABLET (FP) PO SCH (22:08)
[2018-01-15] MEDS: QUEtiapine FUMARATE 200 MG TABLET PO SCH (22:08)
[2018-01-16] MEDS: chlordiazePOXIDE HCL 25 MG CAPSULE PO SCH ×2 (05:34→10:34)
[2018-01-16 09:49] LABS: URINE APPEARANCE SLCLOUDY; URINE BILIRUBIN NEGATIVE (<2.0 mg/dL); URINE COLOR YELLOW; URINE GLUCOSE (UA) NEGATIVE (NEGATIVE); URINE KETONE NEGATIVE (NEGATIVE); URINE LEUK ESTERASE NEGATIVE (NEGATIVE); URINE NITRITE NEGATIVE (NEGATIVE); URINE PROTEIN NEGATIVE (NEGATIVE)
[2018-01-16] MEDS: PRENATAL VITAMINS W/ FOLIC ACID TABLET (FP) PO SCH (10:34)
[2018-01-16] MEDS: NICOTINE 14 MG/24 HOURS TOPICAL PATCH TD SCH (10:35)
[2018-01-16] MEDS: ESCITALOPRAM OXALATE 10 MG TABLET (FP) PO SCH (10:35)
--- NOTE | 2018-01-16 12:39 | PN ---
S CIWA - CIWA Score Nausea/Vomitin-No Nausea/No Vomiting Muscle Tremors: 3 Anxiety: 5 Agitation: 4-Moderately Restless Paroxysmal Sweats: 3 Orientation: 1-Uncertain about Date Tacttile Disturbances: 0-None Auditory Disturbances: 0-None Visual Disturbances: 0-None Headache: 2-Mild CIWA-Ar Total Score: 18 BHS Progress Note (SOAP) Subjective: Sweating, Anxious, H/A, Chills, Tremors. Objective: PATIENT A & O X 2 (UNCERTAIN ABOUT CURRENT DAY / DATE). PATIENT OBSERVED AMBULATING ON UNIT. NO ACUTE DISTRESS. 01/16/18 12:37 Vital Signs Temperature 98.1 F 01/16/18 10:43 Pulse Rate 88 01/16/18 10:43 Respiratory Rate 16 01/16/18 10:43 Blood Pressure 100/57 01/16/18 10:43 O2 Sat by Pulse Oximetry (%) Laboratory Tests 01/14/18 01/15/18 01/15/18 18:38 07:00 07:00 WBC 4.4 D RBC 4.10 Hgb 12.1 D Hct 36.0 D MCV 87.9 MCH 29.6 MCHC 33.7 RDW 14.8 Plt Count 173 MPV 10.7 Sodium 138 Potassium 3.8 Chloride 102 Carbon Dioxide 33 H Anion Gap 3 L BUN 11 D Creatinine 0.9 Creat Clearance w eGFR > 60 Random Glucose 95 Calcium 8.4 L Total Bilirubin 1.2 H AST 38 H D ALT 49 D Alkaline Phosphatase 99 D Total Protein 7.0 Albumin 3.5 D Urine Color Lary Urine Appearance Slcloudy Urine pH 6.0 Ur Specific [place] 1.026 Urine Protein 1+ H Urine Glucose (UA) Negative Urine Ketones 1+ H Urine Blood Negative Urine Nitrite Negative Urine Bilirubin Negative Urine Urobilinogen 2.0 Ur Leukocyte Esterase Trace Urine WBC (Auto) 7 Urine RBC (Auto) 1 Ur Epithelial Cells Rare Urine Bacteria Rare Hyaline Casts 3 Urine Mucus Many RPR Titer HIV 1&2 Antibody Screen HIV P24 Antigen 01/15/18 01/15/18 01/16/18 07:00 07:00 07:00 WBC RBC Hgb Hct MCV MCH MCHC RDW Plt Count MPV Sodium Potassium Chloride Carbon Dioxide Anion Gap BUN Creatinine Creat Clearance w eGFR Random Glucose Calcium Total Bilirubin AST ALT Alkaline Phosphatase Total Protein Albumin Urine Color Yellow Urine Appearance Slcloudy Urine pH 6.0 Ur Specific [place] 1.020 Urine Protein Negative Urine Glucose (UA) Negative Urine Ketones Negative Urine Blood Negative Urine Nitrite Negative Urine Bilirubin Negative Urine Urobilinogen 2.0 Ur Leukocyte Esterase Negative Urine WBC (Auto) Urine RBC (Auto) Ur Epithelial Cells Urine Bacteria Hyaline Casts Urine Mucus RPR Titer Nonreactive HIV 1&2 Antibody Screen Negative HIV P24 Antigen Negative LABS NOTED. RESULTS OF REPEAT UA NOTED. 01/16/18 12:38 Assessment: 01/16/18 12:37 WITHDRAWAL SYMPTOMS. Plan: CONTINUE DETOX. INCREASE DAILY PO FLUID INTAKE.
[2018-01-16] MEDS: chlordiazePOXIDE 5 MG CAPSULE PO SCH ×2 (17:06→22:28)
[2018-01-16] MEDS: QUEtiapine FUMARATE 200 MG TABLET PO SCH (22:28)
[2018-01-16] MEDS: THIAMINE HCL 100 MG TABLET (FP) PO SCH (22:28)
[2018-01-17] MEDS: chlordiazePOXIDE 5 MG CAPSULE PO SCH ×3 (05:24→13:00)
[2018-01-17] MEDS: ESCITALOPRAM OXALATE 10 MG TABLET (FP) PO SCH ×2 (10:50→13:00)
[2018-01-17] MEDS: NICOTINE 14 MG/24 HOURS TOPICAL PATCH TD SCH ×2 (10:51→13:01)
[2018-01-17] MEDS: PRENATAL VITAMINS W/ FOLIC ACID TABLET (FP) PO SCH ×2 (10:51→13:01)
--- NOTE | 2018-01-17 15:46 | PN ---
BHS Progress Note (SOAP) Subjective: Fatigue, Anxious. Objective: PATIENT A & O X 3, OBSERVED AMBULATING ON UNIT. NO ACUTE DISTRESS. 01/17/18 15:45 Vital Signs Temperature 97.8 F 01/17/18 14:47 Pulse Rate 77 01/17/18 14:47 Respiratory Rate 18 01/17/18 14:47 Blood Pressure 103/56 01/17/18 14:47 O2 Sat by Pulse Oximetry (%) Laboratory Tests 01/14/18 01/15/18 01/15/18 18:38 07:00 07:00 WBC 4.4 D RBC 4.10 Hgb 12.1 D Hct 36.0 D MCV 87.9 MCH 29.6 MCHC 33.7 RDW 14.8 Plt Count 173 MPV 10.7 Sodium 138 Potassium 3.8 Chloride 102 Carbon Dioxide 33 H Anion Gap 3 L BUN 11 D Creatinine 0.9 Creat Clearance w eGFR > 60 Random Glucose 95 Calcium 8.4 L Total Bilirubin 1.2 H AST 38 H D ALT 49 D Alkaline Phosphatase 99 D Total Protein 7.0 Albumin 3.5 D Urine Color Lary Urine Appearance Slcloudy Urine pH 6.0 Ur Specific [place] 1.026 Urine Protein 1+ H Urine Glucose (UA) Negative Urine Ketones 1+ H Urine Blood Negative Urine Nitrite Negative Urine Bilirubin Negative Urine Urobilinogen 2.0 Ur Leukocyte Esterase Trace Urine WBC (Auto) 7 Urine RBC (Auto) 1 Ur Epithelial Cells Rare Urine Bacteria Rare Hyaline Casts 3 Urine Mucus Many RPR Titer HIV 1&2 Antibody Screen HIV P24 Antigen 01/15/18 01/15/18 01/16/18 07:00 07:00 07:00 WBC RBC Hgb Hct MCV MCH MCHC RDW Plt Count MPV Sodium Potassium Chloride Carbon Dioxide Anion Gap BUN Creatinine Creat Clearance w eGFR Random Glucose Calcium Total Bilirubin AST ALT Alkaline Phosphatase Total Protein Albumin Urine Color Yellow Urine Appearance Slcloudy Urine pH 6.0 Ur Specific [place] 1.020 Urine Protein Negative Urine Glucose (UA) Negative Urine Ketones Negative Urine Blood Negative Urine Nitrite Negative Urine Bilirubin Negative Urine Urobilinogen 2.0 Ur Leukocyte Esterase Negative Urine WBC (Auto) Urine RBC (Auto) Ur Epithelial Cells Urine Bacteria Hyaline Casts Urine Mucus RPR Titer Nonreactive HIV 1&2 Antibody Screen Negative HIV P24 Antigen Negative LABS NOTED. Assessment: 01/17/18 15:45 WITHDRAWAL SYMPTOMS. Plan: CONTINUE DETOX. PATIENT SCHEDULED FOR D/C TOMORROW.
[2018-01-17] MEDS: chlordiazePOXIDE HCL 10 MG CAPSULE PO SCH ×2 (17:42→22:47)
[2018-01-17 22:00] VITALS: BP 102/68; PULSE 79; TEMP 95.9
[2018-01-17] MEDS: THIAMINE HCL 100 MG TABLET (FP) PO SCH (22:47)
[2018-01-17] MEDS: QUEtiapine FUMARATE 200 MG TABLET PO SCH (22:47)
[2018-01-18] MEDS: chlordiazePOXIDE HCL 10 MG CAPSULE PO SCH (06:46)
--- NOTE | 2018-01-18 15:41 | PN ---
BHS Progress Note (SOAP) Subjective: Patient denies current Detox symptoms and reports that he feels well overall. Objective: PATIENT A & O X 3, OBSERVED AMBULATING ON UNIT. NO ACUTE DISTRESS. 01/18/18 15:37 Vital Signs Temperature 95.9 F L 01/17/18 21:59 Pulse Rate 79 01/17/18 21:59 Respiratory Rate 18 01/18/18 03:30 Blood Pressure 102/68 01/17/18 21:59 O2 Sat by Pulse Oximetry (%) Laboratory Tests 01/14/18 01/15/18 01/15/18 18:38 07:00 07:00 WBC 4.4 D RBC 4.10 Hgb 12.1 D Hct 36.0 D MCV 87.9 MCH 29.6 MCHC 33.7 RDW 14.8 Plt Count 173 MPV 10.7 Sodium 138 Potassium 3.8 Chloride 102 Carbon Dioxide 33 H Anion Gap 3 L BUN 11 D Creatinine 0.9 Creat Clearance w eGFR > 60 Random Glucose 95 Calcium 8.4 L Total Bilirubin 1.2 H AST 38 H D ALT 49 D Alkaline Phosphatase 99 D Total Protein 7.0 Albumin 3.5 D Urine Color Lary Urine Appearance Slcloudy Urine pH 6.0 Ur Specific [place] 1.026 Urine Protein 1+ H Urine Glucose (UA) Negative Urine Ketones 1+ H Urine Blood Negative Urine Nitrite Negative Urine Bilirubin Negative Urine Urobilinogen 2.0 Ur Leukocyte Esterase Trace Urine WBC (Auto) 7 Urine RBC (Auto) 1 Ur Epithelial Cells Rare Urine Bacteria Rare Hyaline Casts 3 Urine Mucus Many RPR Titer HIV 1&2 Antibody Screen HIV P24 Antigen 01/15/18 01/15/18 01/16/18 07:00 07:00 07:00 WBC RBC Hgb Hct MCV MCH MCHC RDW Plt Count MPV Sodium Potassium Chloride Carbon Dioxide Anion Gap BUN Creatinine Creat Clearance w eGFR Random Glucose Calcium Total Bilirubin AST ALT Alkaline Phosphatase Total Protein Albumin Urine Color Yellow Urine Appearance Slcloudy Urine pH 6.0 Ur Specific [place] 1.020 Urine Protein Negative Urine Glucose (UA) Negative Urine Ketones Negative Urine Blood Negative Urine Nitrite Negative Urine Bilirubin Negative Urine Urobilinogen 2.0 Ur Leukocyte Esterase Negative Urine WBC (Auto) Urine RBC (Auto) Ur Epithelial Cells Urine Bacteria Hyaline Casts Urine Mucus RPR Titer Nonreactive HIV 1&2 Antibody Screen Negative HIV P24 Antigen Negative LABS NOTED. Assessment: 01/18/18 15:39 COMPLETION OF DETOX REGIMEN. 01/18/18 15:40 Plan: PATIENT SCHEDULED FOR DISCHARGE FROM DETOX UNIT TODAY.
--- NOTE | 2018-01-18 15:49 | DS ---
[facility] Detox Discharge Summary Admission Date: 01/14/18 Discharge Date: 01/18/18 - History Present History: Alcohol Dependence, Cocaine Dependence Additional Comments: PATIENT GOING TO [facility] ([place], [place] FOR AFTERCARE. PATIENT WAS DISCHARGED FROM DETOX UNIT IN STABLE MEDICAL CONDITION. Pertinent Past History: Depression, Schizophrenia, Dehydration, Insomnia, Nicotine Dependence. - Physical Exam Results Vital Signs: Vital Signs Temperature 95.9 F L 01/17/18 21:59 Pulse Rate 79 01/17/18 21:59 Respiratory Rate 01/18/18 03:30 Blood Pressure 102/68 01/17/18 21:59 O2 Sat by Pulse Oximetry (%) Pertinent Admission Physical Exam Findings: WITHDRAWAL SYMPTOMS. Laboratory Tests 01/14/18 01/15/18 01/15/18 18:38 07:00 07:00 WBC 4.4 D RBC 4.10 Hgb 12.1 D Hct 36.0 D MCV 87.9 MCH 29.6 MCHC 33.7 RDW 14.8 Plt Count 173 MPV 10.7 Sodium 138 Potassium 3.8 Chloride 102 Carbon Dioxide 33 H Anion Gap 3 L BUN 11 D Creatinine 0.9 Creat Clearance w eGFR > 60 Random Glucose 95 Calcium 8.4 L Total Bilirubin 1.2 H AST 38 H D ALT 49 D Alkaline Phosphatase 99 D Total Protein 7.0 Albumin 3.5 D Urine Color [place] Urine Appearance Slcloudy Urine pH 6.0 Ur Specific [place] 1.026 Urine Protein 1+ H Urine Glucose (UA) Negative Urine Ketones 1+ H Urine Blood Negative Urine Nitrite Negative Urine Bilirubin Negative Urine Urobilinogen 2.0 Ur Leukocyte Esterase Trace Urine WBC (Auto) 7 Urine RBC (Auto) 1 Ur Epithelial Cells Rare Urine Bacteria Rare Hyaline Casts 3 Urine Mucus Many RPR Titer HIV 1&2 Antibody Screen HIV P24 Antigen 01/15/18 01/15/18 01/16/18 07:00 07:00 07:00 WBC RBC Hgb Hct MCV MCH MCHC RDW Plt Count MPV Sodium Potassium Chloride Carbon Dioxide Anion Gap BUN Creatinine Creat Clearance w eGFR Random Glucose Calcium Total Bilirubin AST ALT Alkaline Phosphatase Total Protein Albumin Urine Color Yellow Urine Appearance Slcloudy Urine pH 6.0 Ur Specific [place] 1.020 Urine Protein Negative Urine Glucose (UA) Negative Urine Ketones Negative Urine Blood Negative Urine Nitrite Negative Urine Bilirubin Negative Urine Urobilinogen 2.0 Ur Leukocyte Esterase Negative Urine WBC (Auto) Urine RBC (Auto) Ur Epithelial Cells Urine Bacteria Hyaline Casts Urine Mucus RPR Titer Nonreactive HIV 1&2 Antibody Screen Negative HIV P24 Antigen Negative LABS NOTED. - Treatment Hospital Course: Detox Protocol Followed, Detoxed Safely, Responded well, Discharged Condition Good, Rehab Referral Accepted Patient has Accepted a Rehab Referral to: [facility] ([place], [place] - Medication Discharge Medications: Ambulatory Orders Citalopram Hydrobromide [Celexa -] 20 mg PO DAILY 10/17/16 Quetiapine Fumarate [Seroquel -] 400 mg PO BID 10/17/16 Citalopram Hydrobromide [Celexa -] 20 mg PO DAILY #30 tablet 10/19/16 Quetiapine Fumarate [Seroquel] 300 mg PO HS #30 tablet 10/19/16 Escitalopram Oxalate [Lexapro -] 10 mg PO DAILY #30 tablet 01/17/18 Quetiapine Fumarate [Seroquel -] 200 mg PO HS #30 tab 01/17/18 - Diagnosis (1) Alcohol dependence with uncomplicated withdrawal Status: Acute (2) Cocaine dependence Status: Acute (3) Dehydration Status: Acute (4) Nicotine dependence Status: Acute Qualifiers: Nicotine product type: cigarettes Substance use status: uncomplicated Qualified Code(s): F17.210 - Nicotine dependence, cigarettes, uncomplicated (5) Schizophrenia Status: Chronic Qualifiers: Schizophrenia type: unspecified Qualified Code(s): F20.9 - Schizophrenia, unspecified (6) Insomnia Status: Acute Qualifiers: Insomnia type: unspecified Qualified Code(s): G47.00 - Insomnia, unspecified - AMA Did Patient Leave Against Medical Advice: No
== END 2018-01-18 08:45 | disposition home or self-care (01) | DRG 897 ==
LOC: YASAS 10:01 → Y3N 11:45
PROVIDERS: ADMIT Internal Medicine; ATTEND Internal Medicine
PROC: HZ2ZZZZ Detoxification Services for Substance Abuse Treatment (ICD-10-PCS; principal; 2018-01-14)
DX: F10.230 Alcohol dependence with withdrawal, uncomplicated (principal); F14.20 Cocaine dependence, uncomplicated; F17.210 Nicotine dependence, cigarettes, uncomplicated; F20.9 Schizophrenia, unspecified; F32.9 Major depressive disorder, single episode, unspecified; G47.00 Insomnia, unspecified; E86.0 Dehydration; Z91.5 Personal history of self-harm; Z59.0 Homelessness
CPT/HCPCS: 36415; 80053; 81003; 81015; 85027; 86593; 87389; 93005; 93010